=== PATIENT | female | born 1950 | race Caucasian/White ===

== ENCOUNTER 2022-07-04 18:31 | Emergency (ER) | payer MEDICARE, BC ==
[~2022-07-04] VITALS: Ht 154.9 cm; Wt 81.8 kg
[2022-07-04] MEDS ORDERED: METOPROLOL PO (18:43)
[2022-07-04] MEDS ORDERED: LEXAPRO 10MG10 MG PO (18:44)
[2022-07-04] MEDS ORDERED: PRILOSEC OTC20 MG PO (18:44)
[2022-07-04] MEDS ORDERED: LISINOPRIL20 MG PO (18:44)
[2022-07-04] MEDS ORDERED: GLUCOPHAGE PO (18:45)
[2022-07-04] MEDS ORDERED: NOVOLIN 70100 UNIT/1 SQ (18:46)
[2022-07-04 20:23] LABS: BASO # 0.02 K/mm3 (0.02-0.10); EOS # 0.15 K/mm3 (0.04-0.40); EOS % 1.7 % (1.0-5.0); HEMATOCRIT 36.5 % (37.0-47.0); HEMOGLOBIN 11.7 g/dL (12.5-16.0); LYMPH# 2.42 K/mm3 (1.50-4.00); MEAN CELL VOLUME 87 fl (78-100); MEAN CORPUSCULAR HEMOGLOBIN 28 pg (27-31); MEAN CORPUSCULAR HGB CONC 32 g/dL (33-37); MEAN PLATELET VOLUME 10.5 fl (7.4-10.4); MONO # 0.81 K/mm3 (0.20-0.80); NEU # 5.53 K/mm3 (1.40-6.50); PLATELET COUNT 270 K/mm3 (130-400); RED BLOOD COUNT 4.21 M/mm3 (4.10-5.30); RED CELL DISTRIBUTION WIDTH 13.7 % (11.5-14.5)
[2022-07-04 20:32] LABS: ALBUMIN 3.8 g/dL (3.4-4.8); POTASSIUM 4.5 mmol/L (3.5-5.1)
[2022-07-04 20:33] LABS: CALCIUM 9.2 mg/dL (8.3-10.5)
[2022-07-04 20:35] LABS: TOTAL PROTEIN 6.8 g/dL (6.2-8.1)
[2022-07-04 20:36] LABS: TOTAL BILIRUBIN 0.4 mg/dL (0.2-1.2)
[2022-07-04 22:30] VITALS: BP 157/75
== END 2022-07-04 22:47 | disposition short-term general hospital (02) ==
LOC: ED 18:31
PROVIDERS: Nurse Practitioner
DX: S32.592A Other specified fracture of left pubis, initial encounter for closed fracture (principal); S09.90XA Unspecified injury of head, initial encounter; Z88.5 Allergy status to narcotic agent; Z88.8 Allergy status to other drugs, medicaments and biological substances; W10.9XXA Fall (on) (from) unspecified stairs and steps, initial encounter; W22.8XXA Striking against or struck by other objects, initial encounter
CPT/HCPCS: J2405; J3010

== ENCOUNTER 2022-07-21 16:54 | Emergency (ER) | payer MEDICARE, BC ==
[~2022-07-21] VITALS: Ht 154.9 cm; Wt 81.8 kg
[~2022-07-21 16:54] MED LIST: GLUCOPHAGE PO; LEXAPRO 10MG10 MG PO; LISINOPRIL20 MG PO; METOPROLOL PO; NOVOLIN 70100 UNIT/1 SQ; PRILOSEC OTC20 MG PO
[2022-07-21 18:06] LABS: BASO # 0.02 K/mm3 (0.02-0.10); HEMATOCRIT 43.8 % (37.0-47.0); HEMOGLOBIN 13.9 g/dL (12.5-16.0); LYMPH# 1.31 K/mm3 (1.50-4.00); MEAN CELL VOLUME 86 fl (78-100); MEAN CORPUSCULAR HEMOGLOBIN 27 pg (27-31); MEAN CORPUSCULAR HGB CONC 32 g/dL (33-37); MEAN PLATELET VOLUME 10.2 fl (7.4-10.4); MONO # 0.54 K/mm3 (0.20-0.80); NEU # 12.12 K/mm3 (1.40-6.50); PLATELET COUNT 478 K/mm3 (130-400); RED BLOOD COUNT 5.08 M/mm3 (4.10-5.30); RED CELL DISTRIBUTION WIDTH 14.2 % (11.5-14.5)
[2022-07-21 18:08] LABS: ALBUMIN 4.5 g/dL (3.4-4.8); POTASSIUM 5.3 mmol/L (3.5-5.1)
[2022-07-21 18:09] LABS: CALCIUM 10.5 mg/dL (8.3-10.5)
[2022-07-21 18:10] LABS: TOTAL PROTEIN 8.2 g/dL (6.2-8.1)
[2022-07-21 18:12] LABS: TOTAL BILIRUBIN 0.6 mg/dL (0.2-1.2)
[2022-07-21 21:56] LABS: URINE APPEARANCE CLEAR; URINE BILIRUBIN 1+ (NEGATIVE); URINE BLOOD TRACE (NEGATIVE); URINE COLOR YELLOW; URINE KETONE 3+ (NEGATIVE); URINE LEUKOCYTE ESTERASE NEGATIVE (NEGATIVE); URINE NITRATE NEGATIVE (NEGATIVE); URINE PROTEIN(semi-quant) TRACE (NEGATIVE); URINE UROBILINOGEN NORMAL (NORMAL)
[2022-07-21 21:57] LABS: URINE MUCUS PRESENT (NOT PRESENT)
[2022-07-21 23:00] LABS: POTASSIUM 4.7 mmol/L (3.5-5.1)
[2022-07-21 23:02] LABS: CALCIUM 8.8 mg/dL (8.3-10.5)
[2022-07-22 08:11] LABS: HEMATOCRIT 35.2 % (37.0-47.0); HEMOGLOBIN 11.5 g/dL (12.5-16.0); MEAN PLATELET VOLUME 9.5 fl (7.4-10.4); RED BLOOD COUNT 4.13 M/mm3 (4.10-5.30); RED CELL DISTRIBUTION WIDTH 14.2 % (11.5-14.5); WHITE BLOOD COUNT 13.1 K/mm3 (4.8-10.8)
[2022-07-22 08:23] LABS: POTASSIUM 3.6 mmol/L (3.5-5.1)
[2022-07-22 11:22] LABS: URINE APPEARANCE CLOUDY; URINE BILIRUBIN NEGATIVE (NEGATIVE); URINE BLOOD NEGATIVE (NEGATIVE); URINE COLOR YELLOW; URINE KETONE 1+ (NEGATIVE); URINE NITRATE NEGATIVE (NEGATIVE); URINE PROTEIN(semi-quant) 1+ (NEGATIVE); URINE UROBILINOGEN NORMAL (NORMAL)
[2022-07-22 11:23] LABS: URINE LEUKOCYTE ESTERASE 1+ (NEGATIVE); URINE WBC 16-30 /hpf (0-3)
[2022-07-22 18:25] VITALS: BP 163/81
== END 2022-07-22 17:57 | disposition home or self-care (01) ==
LOC: ED 16:54
PROVIDERS: Family Medicine
DX: E10.10 Type 1 diabetes mellitus with ketoacidosis without coma (principal); N17.9 Acute kidney failure, unspecified; Z20.822 Contact with and (suspected) exposure to COVID-19
CPT/HCPCS: J1815; J3490; J7030